=== PATIENT | female | born 1995 | race Asian ===

== ENCOUNTER 2018-12-15 18:52 | Emergency (ER) | payer OTHER ==
--- NOTE | 2018-12-15 19:15 | UC ---
Laceration HPI - HPI Summary HPI Summary: 23 y/o female presents to the urgent care c/o RT anterior sole w/ a laceration s /p stepping by accident on a broken mirror this morning around 0900AM. Pt report she was opening her closed and a mirror fell and then she stepped on it by accident, She irrigated well and bleeding stopped w/ pressure. Pain is 5/10 at touch and w/ walking. Last Tdap was 3 years ago. Pt denies fever, SOB, chest pain,abdominal pain, N/V/d. - History Of Current Complaint Stated Complaint: STEPPED ON GLASS Time Seen by Provider: 12/15/18 19:14 Hx Obtained From: Patient Hx Last Menstrual Period: 12/14/2018 w/ her period now Laceration Location: Foot - RT foot sole w/ a laceration s/p stepping on a glass by accident Mechanism Of Injury: Sharp Trauma Onset/Duration: Sudden Onset - 10 hrs ago, Still Present Severity: Moderate Pain Intensity: 5 Pain Scale Used: 0-10 Numeric Aggravating Factors: Other: - touch or walking - Allergies/Home Medications Allergies/Adverse Reactions: Allergies Allergy/AdvReac Type Severity Reaction Status Date / Time No Known Allergies Allergy Verified 12/15/18 19:16 PMH/Surg Hx/FS Hx/Imm Hx Previously Healthy: Yes - Pt denies PMHX - Family History Known Family History: Positive: Diabetes - Social History Occupation: Student Lives: With Family - Immunization History Vaccination Up to Date: Yes Review of Systems All Other Systems Reviewed And Are Negative: Yes Constitutional: Positive: Negative Skin: Positive: Other - laceration of Rt foot anterio sole s/p stepping on a broken mirrow this morning Eyes: Positive: Negative ENT: Positive: Negative Respiratory: Positive: Negative Cardiovascular: Positive: Negative Gastrointestinal: Positive: Negative Genitourinary: Positive: Negative Motor: Positive: Negative Neurovascular: Positive: Negative Musculoskeletal: Positive: Other: - RT foot pain s/p stepping on a broken mirrow this morning Neurological: Positive: Negative Psychological: Positive: Negative Is Patient Immunocompromised?: No Physical Exam - Summary Physical Exam Summary: Vital Signs Reviewed: Yes General: well developed, well nourished female sitting in the examining table w/ o any apparent distress Eye Exam: Normal Eyes: Positive: Conjunctiva Clear - PERRLA, EOMI, fundi grossly normal ENT: Positive: Normal ENT inspection, Hearing grossly normal, Pharynx normal, TMs normal Neck: Positive: Supple, Nontender, No Lymphadenopathy Respiratory: Positive: Chest non-tender, Lungs clear, Normal breath sounds, No respiratory distress Cardiovascular: Positive: RRR, No Murmur, Pulses Normal, Brisk Capillary Refill Abdomen Description: Positive: Nontender, No Organomegaly, Soft. Negative: CVA Tenderness (R), CVA Tenderness (L) Bowel Sounds: Positive: Present Musculoskeletal: Positive: Strength Intact, ROM Intact, No Edema Neurological: Positive: Alert, Muscle Tone Normal Psychological Exam: Normal Skin: Positive: RT anterior plantar side w/ irregular superficial laceration about 2.0cmx1.0cm in size, some scattered tiny superficial scratches around, non bleeding, discrete glass observed over laceration which was removed w/ splinters. mild tenderness to palpation, no ecchymosis or swelling observed . FROM of RT foor and toes, sensation intact, capillary refill brisk, and pulses WNL. Triage Information Reviewed: Yes Laceration Repair - Laceration Repair 1 Description: Stellate - and irregulat superficial laceration on the anterior plantar side of the Rt foot w/ scatthered discrete superficial scratches Laceration Size After Repair: Length (cm) - 2 cm x 1.0 cm in size skin avulsion Modified For Repair: No Irrigation With Pressure Irrigation Device: Yes Closure Material: Skin Adhesive, SteriStrips - 3 Closure Method: Single Layer Suture Of: Skin Laceration Course/Dx - Course/Dx Course Of Treatment: 23 y/o female presents to the urgent care c/o RT anterior sole w/ a laceration s /p stepping by accident on a broken mirror this morning around 0900AM. Pt report she was opening her closed and a mirror fell and then she stepped on it by accident, She irrigated well and bleeding stopped w/ pressure. Pain is 5/10 at touch and w/ walking. Last Tdap was 3 years ago. Pt denies fever, SOB, chest pain,abdominal pain, N/V/d. Hx obtained. Pt is hemodynamically stable, A&Ox3, Vitals: WNL. PT w/ RT anterior plantar side w/ irregular superficial laceration about 2.0cmx 1cm in size, some scattered tiny superficial scratches around , non bleeding, discrete glass observed over laceration which was removed w/ splinters. mild tenderness to palpation, no ecchymosis or swelling observed . FROM of RT foot and toes, sensation intact, capillary refill brisk, and pulses WNL on examination. LACERATION PROCEDURE NOTE: . Copious irrigation was done with saline by the nurse and foot was soak in water and then wound explored. RT foot X-ray ordered: no frature observed , but possible FB at the mid plantar side of foot. Final radiology report will be done tomorrow. There was small piece of glass removed from the mid plantar side of the RT foot, no deep structure injury noted. FROM of RT foot. Laceration closed w/ skin adhesive and 3 steri-strips. Wound dressed w/ sterile gauze.The Pt tolerated the procedure well without adverse effects. Neurovascular intact and FROM of RT foot. Pt given post-op shoe to avoid too much flexion. Pt Rx Keflex PO to prevent infection, first dose given today by nurse. also Rx Bacitracin oint. Pt advised if any signs of infection develop to immediately return to the urgent care of PCP for further management and treatment. Pt understood and agreed and left the clinic ambulating A&Ox3. - Differential Dx - Laceration/Wound Differental Diagnoses: Abrasion, Cellulitis, Foreign Body, Fracture, Laceration , Puncture Wound, Tendon Laceration - Diagnosis Provider Diagnosis: Laceration of plantar aspect of right foot Discharge ED - Sign-Out/Discharge Documenting (check all that apply): Patient Departure - D/C home All imaging exams completed and their final reports reviewed: No - Discharge Plan Condition: Stable Disposition: HOME Prescriptions: Cephalexin CAP* [Keflex CAP*] 500 mg PO TID #20 cap Patient Education Materials: Laceration (ED), Skin Adhesive Care (ED) Referrals: [facility] [place] [facility] [place] [facility] [Outside] - 1 Week Additional Instructions: 1- Please take Keflex PO as directed. Take yogurts w/ probiotics or culturelle to protect your GI system. 2-Please apply Mupurocin topical cream you have at home 2/Day topical antibiotic over the wound. Keep wound clean and dry 3- Steri-strips will fall off by itself. Then you can apply topical cream there too to prevent infection 4-Take Ibuprofen or Tylenol PO q6-8hrs prn for pain or swelling. Keep foot elevated and avoid standing for long periods of time. Use the postop shoe to avoid too much flexion. 5- If you develop fever or redness around your foot despite the antibiotic please go to the ER immediately or return to the Urgent care. - Billing Disposition and Condition Condition: STABLE Disposition: Home - Attestation Statements Provider Attestation: Per institutional requirements, I have reviewed the chart, however, I was not consulted specifically or made aware of this patient by the midlevel provider. I did not personally evaluate, interact with , or disposition this patient.
[2018-12-15 19:17] VITALS: BP 110/65
[2018-12-15] MEDS ORDERED: Cephalexin CAP* 500 MG PO ONE (20:48)
--- NOTE | 2018-12-16 07:54 | UC ---
- Progress Note Progress Note: Reviewed radiology report: no acute osseous injury and no foreign body seen. No change in plan needed. Patient Name: BARAK LOPEZ Medical Record#: [id number] Ordering Physician: Shyann ROQUE Acct.#: [id number] : 1995 Age: 23 Sex: F Location: [facility] Exam Date: 12/15/181929 ADM Status: DEP ER Order Information: FOOT RIGHT 3+ VWS Accession Number: [id number] CPT: 54192 HISTORY: RT foot laceration w/ glass s/p stepping on broken . COMPARISONS: None relevant available at the time of dictation. VIEWS: 3, Frontal, lateral, and oblique views of the right foot FINDINGS: BONE DENSITY: Normal. BONES: There is no displaced fracture. JOINTS: There is no arthropathy. ALIGNMENT: There is no dislocation. SOFT TISSUES: Unremarkable. OTHER FINDINGS: There is no appreciable radiopaque foreign body. The questionable foreign body noted on the preliminary assessment is not evident on selected images. IMPRESSION: NO ACUTE OSSEOUS INJURY. IF SYMPTOMS PERSIST, RECOMMEND REPEAT IMAGING. R2 Preliminary Imaging Read R2 <Electronically signed by Filippo Jefferson MD in [place]> 12/16/18744 Dictated By: Filippo Jefferson MD Dictated Date/Time: 12/16/18743 Transcribed Date/Time: 12/16/18743 Copy to: CC:Teofilo Hartley MD; Shyann ROQUE; No Primary Care Phys,[facility] Imaging - [facility] Imaging - [facility] Imaging - [facility] [address] [place] [address] This report is only to be considered final once signed by the Provider(s) as displayed in the "<Electronically Signed by >" field (s). Absence of a signature indicates the report is in a draft status and still needs to be finalized. In the event this document was created by someone other than the signing Provider, the individual initiating the document will be listed in the "Entered by:" or "Dictated by:" albarado. 1 of 2 Course/Dx - Diagnoses Provider Diagnoses: Laceration of plantar aspect of right foot Discharge ED - Sign-Out/Discharge Documenting (check all that apply): Post-Discharge Follow Up All imaging exams completed and their final reports reviewed: No - Discharge Plan Condition: Stable Disposition: HOME Prescriptions: Cephalexin CAP* [Keflex CAP*] 500 mg PO TID #20 cap Patient Education Materials: Laceration (ED), Skin Adhesive Care (ED) [place] [facility] [place] [place]] - 1 Week Additional Instructions: 1- Please take Keflex PO as directed. Take yogurts w/ probiotics or culturelle to protect your GI system. 2-Please apply Mupurocin topical cream you have at home 2/Day topical antibiotic over the wound. Keep wound clean and dry 3- Steri-strips will fall off by itself. Then you can apply topical cream there too to prevent infection 4-Take Ibuprofen or Tylenol PO q6-8hrs prn for pain or swelling. Keep foot elevated and avoid standing for long periods of time. Use the postop shoe to avoid too much flexion. 5- If you develop fever or redness around your foot despite the antibiotic please go to the ER immediately or return to the Urgent care. - Billing Disposition and Condition Condition: STABLE Disposition: Home
--- NOTE | 2018-12-20 08:30 | UC ---
- Progress Note Progress Note: wet read correct Course/Dx - Diagnoses Provider Diagnoses: Laceration of plantar aspect of right foot Discharge ED - Sign-Out/Discharge Documenting (check all that apply): Patient Departure All imaging exams completed and their final reports reviewed: Yes - Discharge Plan Condition: Stable Disposition: HOME Prescriptions: Cephalexin CAP* [Keflex CAP*] 500 mg PO TID #20 cap Patient Education Materials: Laceration (ED), Skin Adhesive Care (ED) Referrals: [facility] [place] [facility] [Outside] - 1 Week Additional Instructions: 1- Please take Keflex PO as directed. Take yogurts w/ probiotics or culturelle to protect your GI system. 2-Please apply Mupurocin topical cream you have at home 2/Day topical antibiotic over the wound. Keep wound clean and dry 3- Steri-strips will fall off by itself. Then you can apply topical cream there too to prevent infection 4-Take Ibuprofen or Tylenol PO q6-8hrs prn for pain or swelling. Keep foot elevated and avoid standing for long periods of time. Use the postop shoe to avoid too much flexion. 5- If you develop fever or redness around your foot despite the antibiotic please go to the ER immediately or return to the Urgent care. - Billing Disposition and Condition Condition: STABLE Disposition: Home
== END 2018-12-15 20:55 | disposition home or self-care (01) ==
LOC: UCEAST 18:52
DX: S91.311A Laceration without foreign body, right foot, initial encounter (principal); W26.8XXA Contact with other sharp object(s), not elsewhere classified, initial encounter; Y92.9 Unspecified place or not applicable
CPT/HCPCS: 12001; 99202; A9270-GY; G0463